=== PATIENT | female | born 1985 | race Caucasian/White ===

== ENCOUNTER 2018-03-25 17:44 | Emergency (ER) | payer BC, OTHER | END 2018-03-25 19:00 | disposition home or self-care (01) | LOC: E/R 17:44 | DX: R05 Cough (principal) | CPT/HCPCS: 99283; Z7502 ==

== ENCOUNTER 2018-04-29 21:30 | Emergency (ER) | payer SELFPAY, BC | END 2018-04-29 23:48 | disposition left against medical advice (07) | LOC: FTE 21:30 | DX: Z53.21 Procedure and treatment not carried out due to patient leaving prior to being seen by health care provider (principal) ==

== ENCOUNTER 2018-07-23 22:36 | Emergency (ER) | payer BC ==
[2018-07-23 23:26] LABS: URINE BLOOD (Dip) POC Negative (NEGATIVE); URINE GLUCOSE (Dip) POC Negative (NEGATIVE); URINE KETONES (Dip) POC Negative (NEGATIVE); URINE LEUKOCYTE EST (Dip) POC Negative (NEGATIVE); URINE NITRITE (Dip) POC Negative (NEGATIVE); URINE TOTAL PROTEIN POC Negative (NEGATIVE)
== END 2018-07-24 00:35 | disposition home or self-care (01) ==
LOC: FTE 07-24 00:35
DX: N30.01 Acute cystitis with hematuria (principal)
CPT/HCPCS: 81003; 81025; 99283

== ENCOUNTER 2018-11-05 17:23 | Emergency (ER) | payer SELFPAY, BC ==
[2018-11-05 22:50] LABS: ADD MAN DIFF? NO
[2018-11-05 22:51] LABS: WHITE BLOOD COUNT 10.5 10^3/ul (4.8-10.8)
[2018-11-05 22:51] LABS: BASOPHIL # 0.1 10^3/ul (0.0-0.1); BASOPHILS % 0.5 % (0.0-2.0); EOSINOPHILS # 0.1 10^3/ul (0.0-0.5); EOSINOPHILS % 0.7 % (0.0-7.0); LYMPHOCYTES # 2.8 10^3/ul (0.8-2.9); LYMPHOCYTES % 26.6 % (15.0-51.0); MEAN CORPUSCULAR HEMOGLOBIN 29.6 pg (29.0-33.0); MEAN CORPUSCULAR HGB CONC 32.4 g/dl (32.0-37.0); MEAN CORPUSCULAR VOLUME 91.1 fl (82.0-101.0); MEAN PLATELET VOLUME 9.9 fl (7.4-10.4); MONOCYTE # 0.9 10^3/ul (0.3-0.9); MONOCYTES % 8.2 % (0.0-11.0); NEUTROPHIL # 6.7 10^3/ul (1.6-7.5); NEUTROPHILS % 63.7 % (39.0-77.0); PLATELET COUNT 402 10^3/UL (140-415); RED BLOOD COUNT 4.06 10^6/ul (4.20-5.40); RED CELL DISTRIBUTION WIDTH 12.8 % (11.5-14.5)
[2018-11-05 22:55] LABS: ADD UMIC NO; UR ASCORBIC ACID NEGATIVE (NEGATIVE); UR BILIRUBIN (Dip) NEGATIVE (NEGATIVE); UR BLOOD (Dip) NEGATIVE (NEGATIVE); UR CLARITY CLEAR (CLEAR); UR COLOR YELLOW (YELLOW); UR GLUCOSE (Dip) NEGATIVE (NEGATIVE); UR KETONES (Dip) NEGATIVE (NEGATIVE); UR LEUKOCYTE ESTERASE (Dip) NEGATIVE Leu/ul (NEGATIVE); UR NITRITE (Dip) NEGATIVE (NEGATIVE); UR SPECIFIC GRAVITY (Dip) 1.026 (1.003-1.030); UR TOTAL PROTEIN (Dip) NEGATIVE (NEGATIVE); UR UROBILINOGEN (Dip) 2+ mg/dL (NEGATIVE)
[2018-11-05 23:11] LABS: ANION GAP 11 (5-13); BLOOD UREA NITROGEN 15 mg/dl (7-20); CALCIUM 8.9 mg/dl (8.4-10.2); CARBON DIOXIDE 29 mmol/L (21-31); CHLORIDE 101 mmol/L (97-110); CREATININE 0.61 mg/dl (0.44-1.00); Estimated GFR > 60 mL/min (>60); GLUCOSE 99 mg/dl (70-220); POTASSIUM 3.6 mmol/L (3.5-5.1); SODIUM 141 mmol/L (135-144)
[2018-11-05] MEDS: SOD CHLORIDE 0.9% 500 ML IV (23:14)
[2018-11-05 23:22] LABS: TROPONIN-I < 0.012 ng/ml (0.000-0.120)
== END 2018-11-06 00:25 | disposition home or self-care (01) ==
LOC: E/R 11-06 00:25
DX: F41.9 Anxiety disorder, unspecified (principal)
CPT/HCPCS: 36415; 71045; 80048; 81003; 84484; 85025; 93005; 99285-25

== ENCOUNTER 2018-12-01 14:28 | Emergency (ER) | payer SELFPAY | END 2018-12-01 17:12 | disposition home or self-care (01) | LOC: FTE 14:28 | DX: R05 Cough (principal) | CPT/HCPCS: 99283 ==

== ENCOUNTER 2019-02-05 18:51 | Emergency (ER) | payer SELFPAY ==
[2019-02-05] MEDS: SOD CHLORIDE 0.9% 1,000 ML IV (23:24)
[2019-02-05] MEDS: METOCLOPRAMIDE 10 MG INJ IV (23:24)
[2019-02-05] MEDS: DIPHENHYDRAMINE 50 MG INJ IV (23:24)
[2019-02-05 23:28] LABS: ADD UMIC NO; UR ASCORBIC ACID NEGATIVE (NEGATIVE); UR BACTERIA FEW /HPF (NONE SEEN); UR BILIRUBIN (Dip) NEGATIVE (NEGATIVE); UR BLOOD (Dip) NEGATIVE (NEGATIVE); UR CLARITY SLIGHTLY CLOUDY (CLEAR); UR COLOR YELLOW (YELLOW); UR GLUCOSE (Dip) NEGATIVE (NEGATIVE); UR KETONES (Dip) NEGATIVE (NEGATIVE); UR LEUKOCYTE ESTERASE (Dip) NEGATIVE Leu/ul (NEGATIVE); UR MUCUS FEW /HPF (NONE SEEN); UR NITRITE (Dip) NEGATIVE (NEGATIVE); UR RBC 2 /HPF (0-5); UR SPECIFIC GRAVITY (Dip) 1.018 (1.003-1.030); UR SQUAMOUS EPITHELIAL CELL FEW /HPF (FEW); UR TOTAL PROTEIN (Dip) NEGATIVE (NEGATIVE); UR UROBILINOGEN (Dip) NEGATIVE (NEGATIVE); UR WBC 1 /HPF (0-5)
[2019-02-06] MEDS: SUMATRIPTAN 6 MG/0.5 ML INJ SC (00:22)
== END 2019-02-06 00:52 | disposition home or self-care (01) ==
LOC: FTE 02-06 00:52
DX: G43.909 Migraine, unspecified, not intractable, without status migrainosus (principal)
CPT/HCPCS: 81001; 81003; 81025; 96372; 96374; 96375; 99284-25

== ENCOUNTER 2019-03-09 15:21 | Emergency (ER) | payer SELFPAY | END 2019-03-09 16:05 | disposition home or self-care (01) | LOC: FTE 15:21 → E/R 16:05 | DX: S61.214A Laceration without foreign body of right ring finger without damage to nail, initial encounter (principal); W22.8XXA Striking against or struck by other objects, initial encounter; Y92.9 Unspecified place or not applicable | CPT/HCPCS: 99283 ==

== ENCOUNTER 2019-05-08 17:51 | Emergency (ER) | payer SELFPAY | END 2019-05-09 00:33 | disposition left against medical advice (07) | LOC: FTE 05-09 00:33 | DX: M25.552 Pain in left hip (principal); M79.642 Pain in left hand | CPT/HCPCS: 73130; 73130-LT; 73510; 81025; 99283-25 ==

== ENCOUNTER 2019-05-21 11:00 | Emergency (ER) | payer SELFPAY, OTHER ==
[2019-05-21] MEDS: HYDROCODONE/APAP (5/325) TAB PO (11:43)
[2019-05-21] MEDS: ONDANSETRON (ODT) 4 MG TAB ODT (11:44)
== END 2019-05-21 13:22 | disposition home or self-care (01) ==
LOC: FTE 11:00
DX: M25.561 Pain in right knee (principal)
CPT/HCPCS: 73562; 99283-25